=== PATIENT | female | born 1955 | race Caucasian/White ===

== ENCOUNTER → 2017-06-20 | Outpatient (CLI) | payer OTHER ==
[~2017-06-20] MED LIST: CALC1CAP8 PO; ESTR1TAB15 PO; LEVO100T5 PO; MELO15TA24 PO; OMEG1CAP6 PO; PROG100C16 PO; TRAZ100T15 PO
== END | disposition home or self-care (01) ==
LOC: CFH 15:02
PROVIDERS: ATTEND Obstetrics & Gynecology
DX: Z12.31 Encounter for screening mammogram for malignant neoplasm of breast (principal)
CPT/HCPCS: G0202

== ENCOUNTER → 2017-07-20 | Outpatient (CLI) | payer OTHER ==
[2017-07-20 15:58] LABS: MEAN CORPUSCULAR HEMOGLOBIN 28.9 pg (27.0-34.8); MEAN CORPUSCULAR HGB CONC 33.5 g/dL (32.4-35.8); MEAN CORPUSCULAR VOLUME 86.3 fL (80-100); MEAN PLATELET VOLUME 8.9 fL (7.4-10.4); PLATELET COUNT 302 x10^3/uL (130-400); RED BLOOD COUNT 4.59 x10^6/uL (3.82-5.3); RED CELL DISTRIBUTION WIDTH 13.2 % (9.6-15.2)
[2017-07-20 16:08] LABS: ANION GAP 7 mmol/L (5-15); CALCIUM 8.1 mg/dL (8.5-10.1); CHLORIDE 106 mmol/L (98-107); CREATININE 0.84 mg/dL (0.55-1.02)
== END ==
LOC: STAR 15:07
PROVIDERS: ATTEND Obstetrics & Gynecology
DX: Z01.818 Encounter for other preprocedural examination (principal); N95.0 Postmenopausal bleeding
CPT/HCPCS: 36415; 80048; 85027; 93005

== ENCOUNTER 2017-07-28 09:28 | Day surgery (SDC) | payer OTHER ==
[~2017-07-28] VITALS: Ht 152.4 cm; Wt 68.4 kg
[2017-07-28 10:01] VITALS: BP 122/79
[2017-07-28] MEDS ORDERED: LACTATED RINGERS 1,000 ML IV SCH (10:15)
[2017-07-28] MEDS ORDERED: LIDOCAINE 1%, 2ML SQ PRN (10:30)
[2017-07-28] MEDS ORDERED: FENTANYL PF 100 MCG/2ML ONE ×3 (12:18→14:12)
[2017-07-28] MEDS ORDERED: MIDAZOLAM 1 MG/ML, 2ML ONE (12:18)
[2017-07-28] MEDS ORDERED: BUPIVACAINE/PF 0.25% ONE (12:20)
[2017-07-28] MEDS ORDERED: PROPOFOL 10 MG/ML, 20ML ONE (12:44)
[2017-07-28] MEDS ORDERED: DEXAMETHASONE 4 MG/ML, 1ML ONE ×2 (12:45)
[2017-07-28] MEDS ORDERED: ONDANSETRON 2MG/ML, 2ML ONE ×2 (12:45)
[2017-07-28] MEDS ORDERED: CEFAZOLIN 1,000 MG ONE (12:47)
[2017-07-28] MEDS ORDERED: ONDANSETRON 2MG/ML, 2ML IVPush PRN (13:30)
[2017-07-28] MEDS ORDERED: MEPERIDINE/PF 25MG/0.5ML IVPush PRN (13:30)
[2017-07-28] MEDS ORDERED: MIDAZOLAM 1 MG/ML, 2ML IV PRN (13:30)
[2017-07-28] MEDS ORDERED: PROMETHAZINE 25 MG/ML, 1ML IV PRN (13:30)
[2017-07-28] MEDS ORDERED: hydrALAzine 20 MG/ML, 1ML IV PRN (13:30)
[2017-07-28] MEDS ORDERED: ACETAMINOPHEN 325 MG TABLET PO PRN (13:30)
[2017-07-28] MEDS ORDERED: OXYcodone 5 MG/5 ML ORAL.SOL UDC PO PRN (13:30)
[2017-07-28] MEDS ORDERED: ALBUTEROL SULFATE 2.5 MG/3 ML NPPB PRN (13:30)
[2017-07-28] MEDS ORDERED: LABETALOL 5MG/ML, 20ML IV PRN (13:30)
[2017-07-28] MEDS ORDERED: HYDROmorphone 1 MG/ML, 1ML IV PRN (13:30)
[2017-07-28] MEDS ORDERED: ACETAMINOPHEN 650 MG/20.3 ML UDC ONE (13:34)
[2017-07-28] MEDS ORDERED: OXYcodone 5 MG/5 ML ORAL.SOL UDC ONE (13:34)
[2017-07-28] MEDS: FENTANYL PF 100 MCG/2ML IV PRN ×5 (13:35→14:16)
== END 2017-07-28 15:50 | disposition home or self-care (01) ==
LOC: OUT 09:28
PROVIDERS: ATTEND Obstetrics & Gynecology
DX: N88.2 Stricture and stenosis of cervix uteri (principal); N88.8 Other specified noninflammatory disorders of cervix uteri; E03.9 Hypothyroidism, unspecified; L90.0 Lichen sclerosus et atrophicus; Z79.899 Other long term (current) drug therapy; Z98.51 Tubal ligation status; Z98.890 Other specified postprocedural states; Z83.3 Family history of diabetes mellitus; Z82.49 Family history of ischemic heart disease and other diseases of the circulatory system
CPT/HCPCS: 58558; J0690; J1100; J2250; J2405; J2704; J3010; J3490; J7120

== ENCOUNTER → 2018-09-21 | Outpatient (CLI) | payer OTHER ==
[~2018-09-21] MED LIST changes: +TRAZ-137 PO; -TRAZ100T15 PO
== END | disposition home or self-care (01) ==
LOC: CFH 15:01
PROVIDERS: ATTEND Obstetrics & Gynecology
DX: Z12.31 Encounter for screening mammogram for malignant neoplasm of breast (principal)
CPT/HCPCS: 77067

== ENCOUNTER 2019-02-25 16:17 | Emergency (ER) | payer OTHER ==
[~2019-02-25] VITALS: Ht 152.4 cm; Wt 69.8 kg
[2019-02-25 17:33] VITALS: BP 152/73
== END 2019-02-25 18:37 | disposition home or self-care (01) ==
LOC: ED 16:39
DX: S16.1XXA Strain of muscle, fascia and tendon at neck level, initial encounter (principal); X58.XXXA Exposure to other specified factors, initial encounter; Y93.89 Activity, other specified; Y92.89 Other specified places as the place of occurrence of the external cause; Y99.8 Other external cause status
CPT/HCPCS: 72050; 96372; 99283; J1885